=== PATIENT | male | born 1980 | race Caucasian/White ===

== ENCOUNTER 2023-03-12 09:23 | Emergency (ER) | payer MEDICAID ==
[~2023-03-12] VITALS: Ht 177.8 cm; Wt 64.5 kg
[2023-03-12 09:31] VITALS: BP 136/92; PULSE 88; TEMP 98; O2SAT 99
[2023-03-12] MEDS ORDERED: AMOX-580 PO (10:30)
[2023-03-12] MEDS ORDERED: NAPR-56 PO (10:30)
[2023-03-12] MEDS ORDERED: ketorolac trometh inj. 60 MG/2 ML VIAL IM ONE (10:35)
[2023-03-12 10:40] VITALS: RESP 17
== END 2023-03-12 10:51 | disposition home or self-care (01) ==
LOC: ER 09:24
DX: S61.432A Puncture wound without foreign body of left hand, initial encounter (principal); W54.0XXA Bitten by dog, initial encounter; Y93.89 Activity, other specified; Y92.89 Other specified places as the place of occurrence of the external cause; Y99.8 Other external cause status; Z90.49 Acquired absence of other specified parts of digestive tract; Z72.89 Other problems related to lifestyle
CPT/HCPCS: 73130; 96372; 99283; J1885